=== PATIENT | female | born 1990 | race Caucasian/White ===

== ENCOUNTER 2023-05-14 17:33 | Outpatient (CLI) | payer OTHER, SELFPAY ==
[2023-05-14 17:55] VITALS: BP 116/67; PULSE 75
[2023-05-14 18:00] VITALS: BP 113/65; PULSE 71
[2023-05-14 18:15] VITALS: BP 118/71; PULSE 76
[2023-05-14 19:00] VITALS: BP 116/67; PULSE 70
== END 2023-05-14 18:22 | disposition home or self-care (01) ==
LOC: ANHOBOP 17:41 → ANHLDR 17:43
PROVIDERS: Visit Provider Obstetrics & Gynecology
DX: Z34.90 Encounter for supervision of normal pregnancy, unspecified, unspecified trimester (principal); Z3A.00 Weeks of gestation of pregnancy not specified
CPT/HCPCS: 59025; 99199

== ENCOUNTER 2023-07-14 14:17 | Inpatient (IN) | payer OTHER, SELFPAY ==
[2023-07-14] VITALS (57 sets, daily range): BP systolic 82–133; BP diastolic 26–97; PULSE 65–130; TEMP 36.2; O2SAT 97–100; BMI 30.2
--- NOTE | 2023-07-14 15:33 | LDADM ---
This patient, Tasneem Brown, was admitted to Labor/Delivery/Recovery 106 on 07/14/23 at 14:17. Plans for labor, pain management and were discussed with patient. Patient/family oriented to hospital policies and general routines including ID bracelet, bed and alarms, visiting hours, pain management, procedures, bathroom and other care routines, personal items, smoking policy, room service/diet and guest tray routines, security routines, and visiting hours. Patient/Family are encouraged to report perceived risks to care and to ask questions if they do not understand what they are told or what they should do. See OBIX for further documentation.
[2023-07-14 15:38] LABS: Basophils Percent Auto 0.4 % (0.2-1.2); Eosinophils Percent Auto 0.4 % (0-4.4); Hematocrit 35.8 % (37.0-47.0); Hemoglobin 12.8 g/dL (12.0-15.0); Immature Granulocyte Absolute 0.14 K/mm3 (0.00-0.031); Lymphocytes Absolute Auto 1.96 K/mm3 (0.9-3.2); Lymphocytes Percent Auto 27.8 % (18.3-44.2); Mean Corpuscular HGB Conc 35.8 g/dl (32-36); Mean Corpuscular Hemoglobin 33.2 pg (26-34); Mean Corpuscular Volume 92.7 fl (80-100); Mean Platelet Volume 11.2 fl (7.4-10.4); Monocytes Absolute Auto 0.5 K/mm3 (0.1-0.6); Neutrophils Absolute Auto 4.4 K/mm3 (1.3-6.7); Neutrophils Percent Auto 62.4 % (45.5-73.1); Platelet Count Result 166 k/mm3 (150-375); Red Blood Count 3.86 M/mm3 (4.2-5.4); Red Cell Distribution Width 12.9 % (11.5-14.5)
[2023-07-14 16:32] LABS: HIV 1/2 Ab P24 Ag Result Negative (Negative)
[2023-07-14] MEDS: LACTATED RINGERS 1,000 ML 125 ML IV CONT (16:43)
--- NOTE | 2023-07-14 17:36 | WPDANESEPPF ---
Anes - Initial Pre Proc Eval Date/Time: 07/14/23 17:36 Surgeon: Mehran Issa MD Pre Op Diagnosis: IOL Patient Data Age: 33 Gender: F Height: 1.57 m Weight: 75 kg Last Vital Signs Temp 36.2 C L 07/14/23 15:48 Pulse 78 07/14/23 17:34 BP 123/59 L 07/14/23 17:34 Pulse Ox 100 07/14/23 17:32 O2 Del Method Room Air 07/14/23 15:32 Allergies Allergy/AdvReac Type Severity Reaction Status Date / Time No Known Allergies Allergy Verified 07/01/23 12:35 Home Medications Medication Instructions Recorded Confirmed Type prenat.vits,christiano,jxv-teaq-udggb 1 tablet DAILY 07/01/23 07/14/23 History sertraline 25 mg tablet 25 mg PO DAILY 07/01/23 07/01/23 History Laboratory Tests 07/14/23 15:07 WBC 7.0 K/mm3 (4.5-10.0) RBC 3.86 L M/mm3 (4.2-5.4) Hgb 12.8 g/dL (12.0-15.0) Hct 35.8 L % (37.0-47.0) MCV 92.7 fl (80-100) MCH 33.2 pg (26-34) MCHC 35.8 g/dl (32-36) RDW 12.9 % (11.5-14.5) Plt Count 166 k/mm3 (150-375) MPV 11.2 H fl (7.4-10.4) Immature Gran % (Auto) 2.0 H % (0-0.5) Neut % (Auto) 62.4 % (45.5-73.1) Lymph % (Auto) 27.8 % (18.3-44.2) [place] % (Auto) 7.0 % (2.6-8.5) Eos % (Auto) 0.4 % (0-4.4) Baso % (Auto) 0.4 % (0.2-1.2) Lymph # (Auto) 1.96 K/mm3 (0.9-3.2) [place] # (Auto) 0.5 K/mm3 (0.1-0.6) Eos # (Auto) 0.0 K/mm3 (0-0.3) Baso # (Auto) 0.0 K/mm3 (0.0-0.1) Abs Immat Gran (auto) 0.14 H K/mm3 (0.00-0.031) Absolute Neuts (auto) 4.4 K/mm3 (1.3-6.7) Absolute Nucleated RBC 0.000 K/mm3 (0.0-0.012) Nucleated RBC % 0.0 % (0.0-0.2) RPR Pending HIV 1&2 Ab/P24 Ag 4thGn Negative (Negative) Blood Type O Positive Antibody Screen Negative Patient hx anesthesia problems: none Family hx anesthesia problems: none Results Review: All pre-operative results and documents have been reviewed as part of the pre-operative evaluation. PMFSH Family History Family History Father Hypertension Social History Social History Smoking status: Never smoker Substance use: never Do You Feel Safe in your Home?: No Lack of Transportation: No Lack of Food: Never True Current Housing: I Have Housing Concerned About Future Housing: No Difficulty Paying Gas/Electric Bills: No Difficulty Paying for Meds: No Currently Unemployed: No Education: Bachelor's Degree Difficulty w/ Childcare or Family Care: No Spiritual care concerns: No Anes - Eval Final PreProcedure Day of Procedure 07/14/23 17:36 Patient weight: overweight Heart: regular rate and rhythm Lungs: clear to auscultation Neurological: alert and oriented ASA classification: II Emergent: no Anesthetic plan: proceed Anesthesia type and monitoring: regional epidural and standard monitoring Results Review: All pre-operative results and documents have been reviewed as part of the pre-operative evaluation. Informed Consent: The patient's anesthetic plan and its attendant risks and benefits were discussed with the patient/family/POA. Questions were solicited and answers provided to the satisfaction of the patient/family/POA.
[2023-07-14] MEDS: OXYTOCIN 30 UNITS/NS 500 ML 30 UNITS/500 ML BAG IV CONT (17:52)
--- NOTE | 2023-07-14 19:15 | WPDOBADMIT ---
Obstetrics - Admit Note Admission Note: record reviewed. No pertinent additions to the history and/or any subsequent changes in the physical findings that are not consistent with the expected course of the were found. Additions to the history and/or subsequent changes in the physical findings follow. Pt arrived in labor 5-6 cm/70/-2, AROM large amount of clear, odorless fluid, anticipate vaginal delivery
--- NOTE | 2023-07-14 19:51 | PM.OBPRVD ---
OB - Vaginal Delivery Note Procedure Delivery date: 07/14/23 Induction method: None Delivery augmentation: Rupture of Membranes and Pitocin Delivery monitor: External FHT and External Uterine Route of delivery: Laceration Description: Superficial Delivery repair: vicryl Specimen: No Quantitative Blood Loss (ml): 100 Anesthesia type: Epidural Disposition: Floor Complications: None Narrative: mother and baby skin to skin in stable condition Baby Weeks of gestation at delivery: 37
[2023-07-14] MEDS: OXYTOCIN 30 UNITS/NS 500 ML 30 UNITS/500 ML BAG 999 UNITS IV CONT (20:24)
[2023-07-14] MEDS: OXYTOCIN 30 UNITS/NS 500 ML 30 UNITS/500 ML BAG 125 UNITS IV CONT (20:25)
[2023-07-14] MEDS: IBUPROFEN 600 MG TABLET PO (22:22)
--- NOTE | 2023-07-14 23:00 | OBPPTRN ---
Patient transferred to post room #289 via wheelchair. Support person present. Oriented to unit, room, information board, rooming in, admission packet and security measures. Patient verbalizes understanding.
[2023-07-15] MEDS: ACETAMINOPHEN 325 MG TABLET 650 MG PO ×3 (01:08→19:30)
[2023-07-15 04:30] VITALS: BP 99/51; PULSE 69; RESP 16; TEMP 36.6; O2SAT 100
[2023-07-15 05:51] LABS: Hematocrit 34.3 % (37.0-47.0); Hemoglobin 11.6 g/dL (12.0-15.0)
[2023-07-15 07:32] LABS: Rapid Plasma Reagin Non-Reactive (NonReactive)
[2023-07-15] MEDS: IBUPROFEN 600 MG TABLET PO ×3 (07:46→16:10)
[2023-07-15] MEDS: MULTIVIT/MIN/PREN/FOL AC/IRON TABLET 1 TAB PO (07:46)
[2023-07-15] MEDS: SERTRALINE HCL 25 MG TABLET PO (07:47)
[2023-07-15] MEDS: LANOLIN (LANSINOH) 7.5 GM CREAM 1 APPLIC TOPICAL (07:47)
[2023-07-15 07:50] VITALS: BP 110/64; PULSE 79; RESP 16; TEMP 36.9; O2SAT 100
--- NOTE | 2023-07-15 08:25 | P.PNOB_ITS ---
OB - PN: Subj Subjective Date/time seen: 07/15/23 08:25 Patient comments: no complaints, pain well controlled, incisional pain, tolerating diet and flatus present OB - PN: Obj Data Labs 07/15/23 04:36 Labs: Laboratory Results - last 24 hr 07/14/23 07/15/23 15:07 04:36 WBC 7.0 RBC 3.86 L Hgb 12.8 11.6 L Hct 35.8 L 34.3 L MCV 92.7 MCH 33.2 MCHC 35.8 RDW 12.9 Plt Count 166 MPV 11.2 H Immature Gran % (Auto) 2.0 H Neut % (Auto) 62.4 Lymph % (Auto) 27.8 [place] % (Auto) 7.0 Eos % (Auto) 0.4 Baso % (Auto) 0.4 Lymph # (Auto) 1.96 [place] # (Auto) 0.5 Eos # (Auto) 0.0 Baso # (Auto) 0.0 Abs Immat Gran (auto) 0.14 H Absolute Neuts (auto) 4.4 Absolute Nucleated RBC 0.000 Nucleated RBC % 0.0 RPR Non-reactive HIV 1&2 Ab/P24 Ag 4thGn Negative Blood Type O Positive Antibody Screen Negative OB - PN A/P Plan day: 1 Plan: routine care Comments: No problems, routine care Time Spent With Patient Time: Total time spent is greater than 50% in coordination of care (as documented) at patient's floor/unit and/or counseling patient: Exam Const: General: comfortable, no acute distress and alert Resp: Effort & Inspection: normal respiratory effort Auscultation: no crackles, no rales and no rhonchi Cardio: Rate: regular rate Heart sounds: no click, no murmurs and no rubs GI: Inspection: non-distended GI Palp: No Tenderness to palpation present (GI) Auscultation: normal bowel sounds Other: Incision - CDI Extrem: General: normal to inspection, no pedal edema and no calf tenderness
--- NOTE | 2023-07-15 08:35 | WPDANLDPN2 ---
Anes-Prog Note L&D Date/Time: 07/15/23 08:35 Neuro status: Neuro function grossly intact. Vital Signs: Last Vital Signs Temp 36.6 C 07/15/23 04:30 Pulse 69 07/15/23 04:30 Resp 16 07/15/23 04:30 BP 99/51 L 07/15/23 04:30 Pulse Ox 100 07/15/23 04:30 O2 Del Method Room Air 07/15/23 04:30 Pain score (VAS): 0 Patient feedback: Patient satisfied with anesthetic care.
[2023-07-15 12:47] VITALS: BP 105/58; PULSE 68; RESP 16; TEMP 36.3; O2SAT 100
--- NOTE | 2023-07-15 15:51 | PC.NURSE ---
[id number] Introductions were made, then consulted with patient to assess needs related to . Discussed with mother her?plans to feed?her late , the?experience so far, and Mother verbalizes she is able to independently latch with appropriate positioning and alignment. She denies any nipple discomfort, with exception to the left nipple being injured at some point during or after a feeding. She shared she has been told she has great nipples and is responsively . Infant is currently meeting outcomes for weight, output, jaundice, blood sugar and feeding frequencies of 8-12 times in 24 hours. Mother declines any additional assistance or education at this time. Mother is encouraged to call for assistance if her doesn?t latch, pain with latching, questions or concerns. Mother voiced understanding of information shared. Resources provided for inpatient and outpatient services with the feeding sheet, mom/baby guide and name written on the communication board. Parents voiced understanding of information and will call if there is a request for assistance. Reported to the Primary RN.
[2023-07-15] MEDS: DOCUSATE SODIUM 100 MG CAPSULE PO (16:07)
[2023-07-16] MEDS: IBUPROFEN 600 MG TABLET PO ×2 (03:20→08:58)
[2023-07-16 08:10] VITALS: BP 121/74; PULSE 92; RESP 16; TEMP 36.7; O2SAT 100
--- NOTE | 2023-07-16 08:11 | PM.OBPNVD ---
OB - PN: Subj Subjective Date/time seen: 07/16/23 08:11 Interval history: pp day 2 doing well would like d/c home OB - PN: Obj Data Labs 07/15/23 04:36 OB - PN A/P Plan day: 2 Plan: routine care and discharge home Time Spent With Patient Time: Total time spent is greater than 50% in coordination of care (as documented) at patient's floor/unit and/or counseling patient: Review of Systems Review of Systems: All systems reviewed & are unremarkable except as noted in HPI and below Exam Const: General: cooperative and healthy appearing Chest: Chest palpation & inspection: normal inspection of the chest GI: Other: soft Skin: General skin exam: normal color Neuro: General: patient oriented x3
--- NOTE | 2023-07-16 08:13 | PM.OBDSVD ---
DS: Admitting Diagnosis Discharge Date 07/16/23 Admitting Diagnosis labor DS: Discharge Diagnosis Discharge Diagnosis (1) Vaginal delivery: Code(s): O80 - Encounter for full-term uncomplicated delivery Status: Acute OB - DS: Summary OB Procedures : None OB Procedures Intrapartum: Spontaneous Vag Delivery OB Procedures: : None Peripartum Data Laceration Description: Superficial Time Spent with Patient Time attestation: Total time spent providing and/or coordinating discharge services: Discharge Plan Discharge Attending physician on discharge: Mehran Issa Discharging Clinician: Heather Vale Patient Disposition: Home, Self-Care Activity: pelvic rest Diet: regular Patient Instructions: Antibiotic Form Stand Alone Forms: General Discharge Information Follow-up/Referrals: Heather Vale CNM [Certified Nurse Revenue Research Analyst] - 4 Weeks Discharge Medications: New ibuprofen 600 mg Tablet 600 mg PO Q6H PRN (Reason: Cramping) Qty: 30 0RF Continued sertraline 25 mg Tablet 25 mg PO DAILY #2 Tablet 1 tablet DAILY Date of admission: 07/14/23 14:17 Primary Care Provider: PHYSICIAN,TIMBER FRAMER HELPER Admitting Provider: Mehran Issa Attending physician on admission: Mehran Issa Condition: Stable
[2023-07-16] MEDS: DOCUSATE SODIUM 100 MG CAPSULE PO (08:58)
[2023-07-16] MEDS: SERTRALINE HCL 25 MG TABLET PO (08:58)
[2023-07-16] MEDS: MULTIVIT/MIN/PREN/FOL AC/IRON TABLET 1 TAB PO (08:58)
--- NOTE | 2023-07-16 10:33 | PC.NURSE ---
Patient viewed the discharge video Mother & Baby Care, The First Two Weeks . Patient was given the opportunity and encouraged to ask questions. Patient verbalized understanding of information shared and has been given the mother/baby guide for home reference.
--- NOTE | 2023-07-16 16:41 | PC.NURSE ---
Report received this morning from Primary RN that is going great!
[2023-07-19 10:17] VITALS: BP 122/80; PULSE 86; RESP 18; TEMP 36.7; O2SAT 100
== END 2023-07-16 11:35 | disposition home or self-care (01) | DRG 806 ==
LOC: ANHLDR 15:58 → ANHOB2 07-15 00:57
PROVIDERS: Advanced Practice Midwife; Admitting Provider Obstetrics & Gynecology; Visit Provider Obstetrics & Gynecology
DX: O62.3 Precipitate labor (principal); O71.4 Obstetric high vaginal laceration alone; Z37.0 Single live birth; Z3A.37 37 weeks gestation of pregnancy
CPT/HCPCS: 36415; 85014; 85018; 85025; 86592; 86703; 86850; 86900; 86901; A9270; G0432; J2590; J2795; J7120